=== PATIENT | male | born 1955 | race Caucasian/White ===

== ENCOUNTER 2025-02-13 13:43 | Outpatient (CLI) | payer MEDICARE, SELFPAY ==
--- NOTE | 2025-02-13 14:00 | CRLHL7_ITS ---
For Patients: As a result of the Century Cures Act, medical imaging exams and procedure reports are released immediately into your electronic medical record. You may view this report before your referring provider. If you have questions, please contact your health care provider. 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 Comparison: None. Findings: Sclerotic lesion within the proximal humerus measures 2.2 cm. No pathologic fracture. Severe glenohumeral narrowing with spurring and subchondral reactive sclerotic change. Chronic ossicle adjacent to the greater tuberosity measures 6 millimeters. Subacromial spur is present along with inferior distal clavicular osteophyte. Impression: Severe glenohumeral degenerative joint disease. Sclerotic metastatic focus within the proximal humerus without pathologic fracture. Dictated by Valentino Grimaldo MD @ 02/13/2025 2:18:40 PM (Electronically Signed)
== END 2025-02-13 13:44 | disposition home or self-care (01) ==
PROVIDERS: Visit Provider Nurse Practitioner
DX: C79.51 Secondary malignant neoplasm of bone (principal); M19.011 Primary osteoarthritis, right shoulder
CPT/HCPCS: 73030